=== PATIENT | male | born 1990 | race Caucasian/White ===

== ENCOUNTER 2019-03-09 15:20 | Inpatient (IN) ==
[2019-03-09] MEDS ORDERED: SODIUM CHLORIDE 0.9% 1000ML 2,000 ML IV ONE (15:33)
[2019-03-09 15:54] LABS: Mean Corpuscular Hgb Conc 34.8 g/dL (32-36)
[2019-03-09 15:57] LABS: Appearance Urine Clear (Clear); Bilirubin Urine Negative (Negative); Blood Urine Negative (Negative); Color Urine Yellow; Glucose Urine UA Negative (Negative); Ketones Urine Negative (Negative); Leukocyte Esterase Urine Negative (Negative); Nitrite Urine Negative (Negative); Protein Urine Negative (Negative); Specific Gravity Urine 1.008 (1.000-1.030); Urobilinogen Urine Negative (Negative)
[2019-03-09 16:06] LABS: Hematocrit (blood only) 41.4 % (42-52); Hemoglobin 14.4 g/dL (14.0-18.0); Mean Corpuscular Hemoglobin 30.6 pg (25-34); Mean Corpuscular Volume 87.9 fL (80-100); RDW Standard Deviation 42.1 fL (36.4-46.3); Red Blood Count 4.71 M/uL (4.7-6.1); White Blood Count 7.25 K/uL (4.8-10.8)
[2019-03-09 16:11] LABS: Albumin Level 4.1 gm/dl (3.4-5.0); BUN Creatinine Ratio 15.5 (10-20); Bilirubin Direct 0.1 mg/dl (0-0.2); Calcium 8.7 mg/dl (8.5-10.1); Creatinine Clr Calc Pharmacy 111.1 ml/min; Est GFR (African American) 106.1; Est GFR (Non-African American) 91.5; Potassium 3.3 mmol/L (3.5-5.1)
[2019-03-09 16:25] LABS: Basophils # (auto) 0.01 K/uL (0-0.2); Basophils % (auto) 0.1 %; Eosinophils # (auto) 0.13 K/uL (0-0.5); Eosinophils % (auto) 1.8 %; Immature Granulocytes # (auto) 0.01 K/uL (0.00-0.02); Immature Granulocytes % (auto) 0.1 %; Lymphocytes # (auto) 2.75 K/uL (1.2-3.4); Lymphocytes % (auto) 37.9 %; Mean Platelet Volume 13.2 fL (7.4-10.4); Monocytes # (auto) 0.42 K/uL (0.11-0.59); Monocytes % (auto) 5.8 %; Neutrophils # (auto) 3.93 K/uL (1.4-6.5); Neutrophils % (auto) 54.3 %; Platelet Count 136 K/uL (130-400); Platelet Estimate Normal (Normal)
[2019-03-09 16:26] LABS: Amphetamines+Metham, Urine Neg (Neg); Barbiturates, Urine Neg (Neg); Benzodiazepine, Urine Neg (Neg); Cocaine, Urine Neg (Neg); MDMA (Ecstacy), Urine Neg (Neg); Methadone, Urine Neg (Neg); Opiate, Urine Neg (Neg); Phencyclidine, Urine Neg (Neg)
[2019-03-09 17:02] LABS: Bilirubin,Total 0.4 mg/dl (0.2-1); Total Protein 7.3 gm/dl (6.4-8.2)
[2019-03-09] MEDS ORDERED: SODIUM CHLORIDE 0.9% 1000ML 1,000 ML IV SCH (17:15)
--- NOTE | 2019-03-09 17:25 | Emergency Department Note ---
Entered by Yumiko Ortez acting as a scribe for History of Present Illness General Chief complaint: Abnormal Labs/Diagnostic Testing Stated complaint: RHABDO-DIAGNOSED AT [facility] Time Seen by Provider: 03/09/19 15:30 History of Present Illness Provider complaint: abnormal labs Onset (ago): hour(s) 2 Pain Consistency: + other (episode) Maximum Pain Intensity: 4 Quality: + other (abnormal labs) Relieved By: + other (denies relief from drinking a lot of water) Associated symptoms: + denies other symptoms (hematuria, dysuria) and + other (abdominal pain that radiates to his back, diagnosed with rhabdomyolysis 3 days ago, does CrossFit and was doing a lot of crunches 3 days prior to getting diagnosed, CK was 1400 yesterday and 2300 today, urine is very dark regardless of how much water he drinks); no chest pain, no fever/chills, no nausea/vomiting and no shortness of breath The patient is a 28 year old male who presents to the ED with complaints of an episode of abnormal labs from 2 hours ago. The patient states that he has had severe abdominal pain that started 3 days ago and was diagnosed with rhabdomyolysis at [facility]. The patient states that his abdominal pain radiates to his back. The patient notes that he was at [employer] doing a lot of crunches 3 days prior to getting diagnosed with rhabdomyolysis. The patient states that his CK level was 1400 yesterday and 2300 today, so he was advised to come to the ED. The patient states that his urine is very dark, regardless of how much water he drinks. The patient denies fevers, nausea, vomiting, chest pain, shortness of breath, hematuria and dysuria. Home Medications Home Medications Medication Instructions Recorded Confirmed Type albuterol sulfate 2 puff INHALATION Q6H PRN 03/09/19 03/09/19 History cholecalciferol (vitamin D3) 0 unit PO DAILY 03/09/19 03/09/19 History [Vitamin D3] fluticasone propionate [Flovent 1 puff INHALATION BID PRN 03/09/19 03/09/19 History HFA] loratadine [Claritin] 10 mg PO DAILY 03/09/19 03/09/19 History multivitamin 1 tab PO QAM 03/09/19 03/09/19 History Allergies Allergy/AdvReac Type Severity Reaction Status Date / Time ENVIRONMENTAL Allergy Severe SWOLLEN Uncoded 03/09/19 16:12 EYES/STUFFY NOSE Past Med/Surg History Medical History No known health problems Rhabdomyolysis Social History Feels Safe at Home: Yes Smoking Status: Never smoker Review of Systems See HPI for pertinent positives & negatives. and A total of 10 systems reviewed and were otherwise negative Physical Exam Vital Signs Vital Signs - 24 hr 03/09/19 15:25 03/09/19 16:55 Temperature 36.6 C Temperature Source Oral Sepsis Recent Fever Within 48 Hours No Sepsis New/Unexplained Change in Mental Status No Sepsis Action Taken by Nursing No Action Required Pulse Rate 78 Pulse Rate [Apical] 68 Respiratory Rate 20 14 Respiratory Effort / Characteristics Non-Labored Spontaneous Respiratory Depth Normal Respiratory Pattern Regular Blood Pressure 136/75 Blood Pressure [Right Arm] 119/61 Blood Pressure Mean 95 Blood Pressure Mean [Right Arm] 80 Blood Pressure Position [Right Arm] Sitting Pulse Oximetry 97 100 Oxygen Delivery Method Room Air Room Air GENERAL: He is oriented to person, place, and time. He appears well-developed and well-nourished. He does not appear distressed. HENT: Exam performed. - Head: Normocephalic and atraumatic. - Right Ear: External ear normal. No mastoid tenderness. - Left Ear: External ear normal. No mastoid tenderness. - Mouth/Throat: The oropharynx is clear and moist. No trismus in the jaw. No dental abscesses or uvula swelling. No oropharyngeal exudate or tonsillar abscesses. EYES: Conjunctivae and EOM are normal. Pupils are equal, round, and reactive to light. Right eye exhibits no discharge. Left eye exhibits no discharge. No scleral icterus. NECK: Normal range of motion. Neck supple. No JVD present. No spinous process tenderness present. No carotid bruit present. No rigidity. No tracheal deviation and normal range of motion present. No Brudzinski's sign and no Kernig's sign noted. CV: Normal rate, regular rhythm, normal heart sounds and intact distal pulses. There is no peripheral edema. Palpable radial pulses bue. PULM/CHEST: Effort normal and breath sounds normal. No respiratory distress. No stridor. He has no wheezes. He has no rales. - Chest Wall: He exhibits no tenderness. ABD: The abdomen is soft. Bowel sounds are normal. He has no distension. No mass is present. There is no tenderness. There is no rebound, no guarding, no Mcduffie's sign and no tenderness at McBurney's point. Rovsig negative. MUSC/SKEL: Normal range of motion. There is no peripheral edema, tenderness or deformity. LYMPH: No cervical adenopathy. NEURO: He is alert and oriented to person, place, and time. He has normal strength. No cranial nerve deficit or sensory deficit. Coordination and gait normal. GCS eye subscore is 4. GCS verbal subscore is 5. GCS motor subscore is 6. Cerebellar tests wnl. SKIN: Skin is warm and dry. He is not diaphoretic. PSYCH: He has a normal mood and affect. Behavior is normal. Judgment and thought content normal. Course 1534: Past medical records reviewed. The patient was evaluated in room C03. A complete history and physical exam was performed. 1710: [place] [address]. Patient was started on 2 L normal saline fluid bolus and will continue with intravenous hydration during admission with Dr. Ortiz [facility] hospitalist. Consultations Consultation #1: I discussed the patient's case with Dr. Ortiz- [facility] Hospitalist. She will evaluate the patient for further management. Time: 17:04 Administered Medications Sodium Chloride (Nss 1000ml) 2,000 mls @ 999 mls/hr IV .Q2H1M ONE Stop: 03/09/19 17:33 Last Admin: 03/09/19 15:56 Dose: 999 mls/hr Documented by: [id number] Medical Decision Making Medical Records Attestation: I reviewed the patient's medical records. Home Medications Current Medication List: was personally reviewed by ok Laboratory Data Attestation: I reviewed the patient's lab results. Result diagrams: 03/09/19 15:45 03/09/19 15:45 Lab Results 03/09/19 03/09/19 03/09/19 Range/Units 15:45 15:45 15:45 WBC 7.25 (4.8-10.8) K/uL RBC 4.71 (4.7-6.1) M/uL Hgb 14.4 (14.0-18.0) g/dL Hct 41.4 L (42-52) % MCV 87.9 (80-100) fL MCH 30.6 (25-34) pg MCHC 34.8 (32-36) g/dL RDW Std Deviation 42.1 (36.4-46.3) fL RDW Coeff of [place] 13.0 (11.5-14.5) % Plt Count 136 (130-400) K/uL MPV 13.2 H (7.4-10.4) fL Immature Gran % (Auto) 0.1 % Neut % (Auto) 54.3 % Lymph % (Auto) 37.9 % [place] % (Auto) 5.8 % Eos % (Auto) 1.8 % Baso % (Auto) 0.1 % Immature Gran # (Auto) 0.01 (0.00-0.02) K/uL Neut # (Auto) 3.93 (1.4-6.5) K/uL Lymph # (Auto) 2.75 (1.2-3.4) K/uL [place] # (Auto) 0.42 (0.11-0.59) K/uL Eos # (Auto) 0.13 (0-0.5) K/uL Baso # (Auto) 0.01 (0-0.2) K/uL Platelet Estimate Normal (Normal) Sodium 139 (136-145) mmol/L Potassium 3.3 L (3.5-5.1) mmol/L Chloride 106 (98-107) mmol/L Carbon Dioxide 27 (21-32) mmol/L Anion Gap 6.0 (3-11) BUN 17 (7-18) mg/dl Creatinine 1.10 (0.6-1.4) mg/dl Est Cr Clr Drug Dosing 111.1 ml/min Est GFR ( Amer) 106.1 Est GFR (Non-Af Amer) 91.5 BUN/Creatinine Ratio 15.5 (10-20) Glucose 110 H (70-99) mg/dl Calcium 8.7 (8.5-10.1) mg/dl Total Bilirubin 0.4 (0.2-1) mg/dl Direct Bilirubin 0.1 (0-0.2) mg/dl AST 317 H (15-37) U/L ALT 103 H (12-78) U/L Alkaline Phosphatase 65 (45-117) U/L Total Creatine Kinase 22156 H (39-308) U/L Total Protein 7.3 (6.4-8.2) gm/dl Albumin 4.1 (3.4-5.0) gm/dl Lipase 100 (73-393) U/L Urine Color Urine Appearance (Clear) Urine pH (4.5-7.5) Ur Specific [place] (1.000-1.030) Urine Protein (Negative) Urine Glucose (UA) (Negative) Urine Ketones (Negative) Urine Blood (Negative) Urine Nitrite (Negative) Urine Bilirubin (Negative) Urine Urobilinogen (Negative) Ur Leukocyte Esterase (Negative) Urine Opiates Screen Neg (Neg) Ur Methadone, Qual Neg (Neg) Urine Barbiturates Neg (Neg) Ur Phencyclidine (PCP) Neg (Neg) U Amphetamin/Meth Scrn Neg (Neg) MDMA (Ecstasy) Screen Neg (Neg) U Benzodiazepines Scrn Neg (Neg) Ur Cocaine Metabolite Neg (Neg) U Marijuana (THC) Screen Neg (Neg) 03/09/19 Range/Units 15:45 WBC (4.8-10.8) K/uL RBC (4.7-6.1) M/uL Hgb (14.0-18.0) g/dL Hct (42-52) % MCV (80-100) fL MCH (25-34) pg MCHC (32-36) g/dL RDW Std Deviation (36.4-46.3) fL RDW Coeff of [place] (11.5-14.5) % Plt Count (130-400) K/uL MPV (7.4-10.4) fL Immature Gran % (Auto) % Neut % (Auto) % Lymph % (Auto) % [place] % (Auto) % Eos % (Auto) % Baso % (Auto) % Immature Gran # (Auto) (0.00-0.02) K/uL Neut # (Auto) (1.4-6.5) K/uL Lymph # (Auto) (1.2-3.4) K/uL [place] # (Auto) (0.11-0.59) K/uL Eos # (Auto) (0-0.5) K/uL Baso # (Auto) (0-0.2) K/uL Platelet Estimate (Normal) Sodium (136-145) mmol/L Potassium (3.5-5.1) mmol/L Chloride (98-107) mmol/L Carbon Dioxide (21-32) mmol/L Anion Gap (3-11) BUN (7-18) mg/dl Creatinine (0.6-1.4) mg/dl Est Cr Clr Drug Dosing ml/min Est GFR ( Amer) Est GFR (Non-Af Amer) BUN/Creatinine Ratio (10-20) Glucose (70-99) mg/dl Calcium (8.5-10.1) mg/dl Total Bilirubin (0.2-1) mg/dl Direct Bilirubin (0-0.2) mg/dl AST (15-37) U/L ALT (12-78) U/L Alkaline Phosphatase (45-117) U/L Total Creatine Kinase (39-308) U/L Total Protein (6.4-8.2) gm/dl Albumin (3.4-5.0) gm/dl Lipase (73-393) U/L Urine Color Yellow Urine Appearance Clear (Clear) Urine pH 6.0 (4.5-7.5) Ur Specific [place] 1.008 (1.000-1.030) Urine Protein Negative (Negative) Urine Glucose (UA) Negative (Negative) Urine Ketones Negative (Negative) Urine Blood Negative (Negative) Urine Nitrite Negative (Negative) Urine Bilirubin Negative (Negative) Urine Urobilinogen Negative (Negative) Ur Leukocyte Esterase Negative (Negative) Urine Opiates Screen (Neg) Ur Methadone, Qual (Neg) Urine Barbiturates (Neg) Ur Phencyclidine (PCP) (Neg) U Amphetamin/Meth Scrn (Neg) MDMA (Ecstasy) Screen (Neg) U Benzodiazepines Scrn (Neg) Ur Cocaine Metabolite (Neg) U Marijuana (THC) Screen (Neg) Blood Pressure Blood Pressure Findings: Normal blood pressure Blood Pressure Disposition: did not require urgent referral MDM Narrative [place] [address]. Patient was started on 2 L normal saline fluid bolus and will continue with intravenous hydration during admission with Dr. Ortiz [facility] hospitalist. Impression & Plan Rhabdomyolysis Discharge Plan Visit Data Chief Complaint: Abnormal Labs/Diagnostic Testing Stated Complaint: RHABDO-DIAGNOSED AT [facility] ED Provider: Alvin Herrera Discharge Problem: Rhabdomyolysis Patient Disposition: Being Evaluated by Hospitalist Forms Stand Alone Forms: My [facility] Prescriptions Prescriptions: No Action multivitamin Tablet 1 tab PO QAM RF: 0 Flovent HFA 44 mcg/actuation Hfa Aerosol Inhaler 1 puff INHALATION BID PRN (Reason: ASTHMA SYMPTOMS) RF: 0 albuterol sulfate 90 mcg/actuation Hfa Aerosol Inhaler 2 puff INHALATION Q6H PRN (Reason: BEFORE EXCERCISE/ SOB) RF: 0 loratadine [Claritin] 10 mg Tablet 10 mg PO DAILY RF: 0 cholecalciferol (vitamin D3) [Vitamin D3] 1,000 unit Capsule PO DAILY RF: 0 Referrals Referrals: [place] [Primary Care Provider] - Discharge Problem: Rhabdomyolysis Qualifiers: Rhabdomyolysis type: non-traumatic Qualified Code(s): M62.82 - Rhabdomyolysis The scribe's documentation has been prepared under my direction and personally reviewed by me in its entirety. I confirm that the note above accurately reflects all work, treatment, procedures, and medical decision making performed by me.
[2019-03-09] MEDS ORDERED: ALUMINUM/MAGNESIUM SUSP 30 ML UDC PO PRN (18:34)
[2019-03-09] MEDS ORDERED: MAGNESIUM HYDROXIDE SUSP 30 ML UDC PO PRN (18:34)
[2019-03-09] MEDS ORDERED: ACETAMINOPHEN 325 MG TAB PO PRN (18:34)
[2019-03-09] MEDS ORDERED: ALBUTEROL HFA 8 GM INHALER INH PRN (18:34)
[2019-03-09] MEDS ORDERED: FLUTICASONE PROP HFA INH 44 MCG INHALER INH PRN (18:34)
[2019-03-09] MEDS ORDERED: ONDANSETRON INJ 2 MG/ML 2 ML VIAL IV PRN (18:34)
[2019-03-09] MEDS ORDERED: POLYETHYLENE (MIRALAX) 17 GM PACK PO PRN (18:34)
[2019-03-09] MEDS: SODIUM CHLORIDE 0.9% 1000ML 1,000 ML IV SCH (18:50)
[2019-03-09] MEDS ORDERED: POTASSIUM CHLORIDE 20 MEQ TABCR PO ONE ×2 (19:00→21:00)
[2019-03-09] MEDS ORDERED: IBUPROFEN 200 MG TAB PO PRN (20:41)
[2019-03-09] MEDS ORDERED: TRAMADOL HCL 50 MG TABLET PO PRN (20:41)
--- NOTE | 2019-03-09 20:54 | History & Physical Report ---
Date of Service March 09, 2019 Assessment & Plan (1) Rhabdomyolysis: Admit to [facility] Vital signs every 4 hours Continue monitoring CK and trending down Continue call p.o.'s IV fluid hydration Replenish electrolytes Given potassium 40 mg p.o. x1 for hypokalemia DVT prophylaxis teds and SCDs, ambulate 3 times daily Full code Present on Admission?: Yes (2) Seasonal allergies: Continue home medicine albuterol sulfate 2 puffs every 6 hours as needed, Flonase 1 puff inhalation twice daily, loratadine 10 mg p.o. daily and multivitamin 1 tablet p.o. every morning Present on Admission?: Yes History of Present Illness Chief Complaint: Myalgia Primary Care Provider: [facility] Patient is a 28 years old male with past medical history of seasonal allergies who was sent to the emergency room by the staff at [facility] with diagnosis of rhabdomyolysis and elevated creatinine kinase. Initial creatinine kinase was 1400 yesterday, 2300 today at [facility], and [phone] when rechecked in [facility] ED. Patient did CrossFit couple of days ago doing and lots of crunches 3 days prior to getting diagnosed with rhabdomyolysis. Patient complained that his urine is very dark regardless of how much water he drinks. Patient denies fever, chills, chest pain, shortness of breath, frequency, urgency, dysuria and, hematuria, melena, hematochezia. Labs are reviewed which shows: WBC 7.25, hemoglobin 14.4, hematocrit 41.4, platelets 136, sodium 139, potassium 3.3, chloride 106, anion gap 27, BUN 17, creatinine 1.1, GFR 91.5, AST 317, ALT 103, creatinine kinase 92549. Urine is all negative. Color is yellow. Decision was made to admit patient to [facility] and continue IV fluid hydration and trending down creatinine kinase. Allergies Allergy/AdvReac Type Severity Reaction Status Date / Time ENVIRONMENTAL Allergy Severe SWOLLEN Uncoded 03/09/19 16:12 EYES/STUFFY NOSE Home Medications Home Medications Medication Instructions Recorded Confirmed Type albuterol sulfate 2 puff INHALATION Q6H PRN 03/09/19 03/09/19 History cholecalciferol (vitamin D3) 0 unit PO DAILY 03/09/19 03/09/19 History [Vitamin D3] fluticasone propionate [Flovent 1 puff INHALATION BID PRN 03/09/19 03/09/19 History HFA] loratadine [Claritin] 10 mg PO DAILY 03/09/19 03/09/19 History multivitamin 1 tab PO QAM 03/09/19 03/09/19 History Past Med/Surg History Medical History No known health problems Rhabdomyolysis Social History Preferred Language: Yoruba Communication Ability: Effective Neon Tube Pumper Required: No Beliefs That Will Affect Care: None Current Living Situation: Other Current Living Situation Comment: [facility] Other Information That Helps Us Care for You: No Feels Safe at Home: Yes Safety Concerns: Feels Safe At This Time Smoking Status: Never smoker Hx Alcohol Use: No Hx Substance Use: No Review of Systems Review of Systems: All systems reviewed & are unremarkable except as noted in HPI & below Physical Exam Constitutional: WD/WN, vitals as above well developed Eyes: PERRL, conjunctivae normal, anicteric sclerae ENMT: external ear and nose normal, oropharynx normal Neck: trachea midline, no thyromegaly Respiratory: normal respiratory effort, lungs clear to auscultation Cardiovascular: RRR, no murmur, no edema Gastrointestinal (Abdomen): normal bowel sounds, soft, nontender, no hepatosplenomegaly Musculoskeletal: no cyanosis or clubbing, extremities motor strength 5/5 Skin: no rashes, warm and dry Neurologic: patellar DTR's 2+ bilat, sensation intact Psychiatric: A+Ox3, euthymic affect Lymphatic: no cervical or axillary lymphadenopathy Results & Data Vital Signs (Past 12 Hours) Vital Signs Temp Pulse Pulse Pulse Resp BP BP 03/09/19 19:37 36.8 C 68 19 116/67 03/09/19 18:37 36.7 C 62 18 123/75 03/09/19 18:05 77 19 124/68 03/09/19 16:55 68 14 119/61 03/09/19 15:25 36.6 C 78 20 136/75 Pulse Ox 03/09/19 19:37 98 03/09/19 18:37 98 03/09/19 18:05 98 03/09/19 16:55 100 03/09/19 15:25 97 Code Status & VTE Plan Code Status Full code VTE Prophylaxis Plan VTE Prophylaxis will be ordered: Yes PG Care Time/CCT Total # of Minutes Spent Total Time Spent with Patient: Total time spent is greater than 50% in coordination of care (as documented) at patient's floor/unit and/or counseling patient: (1) Rhabdomyolysis Rhabdomyolysis type: non-traumatic Qualified Code(s): M62.82 - Rhabdomyolysis
[2019-03-09] MEDS: HEPARIN SOD 5,000 UNIT/0.5 ML VIAL SQ SCH (21:16)
[2019-03-10] MEDS: SODIUM CHLORIDE 0.9% 1000ML 1,000 ML IV SCH ×3 (00:35→13:13)
[2019-03-10] MEDS: HEPARIN SOD 5,000 UNIT/0.5 ML VIAL SQ SCH ×2 (05:34→13:16)
[2019-03-10 07:25] LABS: Albumin Level 3.5 gm/dl (3.4-5.0); BUN Creatinine Ratio 13.4 (10-20); Basophils # (auto) 0.02 K/uL (0-0.2); Basophils % (auto) 0.4 %; Calcium 8.2 mg/dl (8.5-10.1); Creatinine Clr Calc Pharmacy 140.2 ml/min; Eosinophils # (auto) 0.12 K/uL (0-0.5); Eosinophils % (auto) 2.1 %; Est GFR (African American) 136.4; Est GFR (Non-African American) 117.7; Hematocrit (blood only) 41.4 % (42-52); Hemoglobin 14.1 g/dL (14.0-18.0); Immature Granulocytes # (auto) 0.01 K/uL (0.00-0.02); Immature Granulocytes % (auto) 0.2 %; Lymphocytes # (auto) 1.64 K/uL (1.2-3.4); Lymphocytes % (auto) 28.7 %; Mean Corpuscular Hemoglobin 30.4 pg (25-34); Mean Corpuscular Hgb Conc 34.1 g/dL (32-36); Mean Corpuscular Volume 89.2 fL (80-100); Mean Platelet Volume 13.3 fL (7.4-10.4); Monocytes # (auto) 0.51 K/uL (0.11-0.59); Monocytes % (auto) 8.9 %; Neutrophils # (auto) 3.41 K/uL (1.4-6.5); Neutrophils % (auto) 59.7 %; Platelet Count 117 K/uL (130-400); Platelet Estimate Decreased (Normal); Potassium 4.1 mmol/L (3.5-5.1); RDW Coefficient of Variation 13.2 % (11.5-14.5); RDW Standard Deviation 43.3 fL (36.4-46.3); Red Blood Count 4.64 M/uL (4.7-6.1); White Blood Count 5.71 K/uL (4.8-10.8)
[2019-03-10 07:57] LABS: Albumin Globulin Ratio 1.2 (0.9-2); Bilirubin,Total 0.4 mg/dl (0.2-1); Total Protein 6.5 gm/dl (6.4-8.2)
[2019-03-10] MEDS ORDERED: ACETAMINOPHEN 325 MG TAB PO PRN (08:40)
[2019-03-10] MEDS ORDERED: MULTIVITAMIN TAB PO SCH (09:00)
[2019-03-10] MEDS ORDERED: CHOLECALCIFEROL 1,000 UNITS TAB PO SCH (09:00)
[2019-03-10] MEDS ORDERED: LORATADINE 10 MG TAB PO SCH (09:00)
--- NOTE | 2019-03-10 09:30 | Ultrasound Report ---
US liver CLINICAL HISTORY: transaminitis elevated liver function tests COMPARISON STUDY: No previous studies for comparison. FINDINGS: Normal liver and pancreas. Gallbladder is normal. No shadowing gallstones. Common bile duct 3 mm. Right kidney is negative for hydronephrosis. IMPRESSION: Negative study The above report was generated using voice recognition software. It may contain grammatical, syntax or spelling errors. Electronically signed by: Moy Coulter M.D. 03/10/2019 9:29 AM
[2019-03-10 10:36] LABS: Hepatitis B Surface Antigen Neg (Neg)
[2019-03-10 11:04] LABS: Hepatitis C IgG 13Yrs+Old_Rflx Neg (Neg)
[2019-03-10 12:27] LABS: BUN Creatinine Ratio 12.8 (10-20); Calcium 8.7 mg/dl (8.5-10.1); Creatinine Clr Calc Pharmacy 146.9 ml/min; Est GFR (African American) 139.1
[2019-03-10] MEDS ORDERED: SODIUM CHLORIDE 0.9% 1000ML 1,000 ML IV SCH (13:15)
--- NOTE | 2019-03-10 18:54 | Discharge Summary ---
Date of Service March 10, 2019 Admission HPI Per Admitting Provider Patient is a 28 years old male with past medical history of seasonal allergies who was sent to the emergency room by the staff at [facility] with diagnosis of rhabdomyolysis and elevated creatinine kinase. Initial creatinine kinase was 1400 yesterday, 2300 today at [facility], and [phone] when rechecked in [facility] ED. Patient did CrossFit couple of days ago doing and lots of crunches 3 days prior to getting diagnosed with rhabdomyolysis. Patient complained that his urine is very dark regardless of how much water he drinks. Patient denies fever, chills, chest pain, shortness of breath, frequency, urgency, dysuria and, hematuria, melena, hematochezia. Labs are reviewed which shows: WBC 7.25, hemoglobin 14.4, hematocrit 41.4, platelets 136, sodium 139, potassium 3.3, chloride 106, anion gap 27, BUN 17, creatinine 1.1, GFR 91.5, AST 317, ALT 103, creatinine kinase 34962. Urine is all negative. Color is yellow. Decision was made to admit patient to [facility] and continue IV fluid hydration and trending down creatinine kinase. Principal Diagnosis Rhabdomyolysis Discharge Exam Constitutional WD/WN, vitals as above Eyes PERRL, conjunctivae normal, anicteric sclerae ENMT external ear and nose normal, oropharynx normal Neck trachea midline, no thyromegaly Respiratory normal respiratory effort, lungs clear to auscultation Cardiovascular RRR, no murmur, no edema Gastrointestinal (Abdomen) normal bowel sounds, soft, nontender, no hepatosplenomegaly Musculoskeletal Extremities: extremities normal to inspection; no cyanosis and no clubbing no TTP over any large muscle groups except minimal abdominal tenderness Skin no rashes, warm and dry Neurologic moves all extremities and awake; no focal motor deficits Psychiatric A+Ox3, euthymic affect Discharge Data Allergies Allergy/AdvReac Type Severity Reaction Status Date / Time ENVIRONMENTAL Allergy Severe SWOLLEN Uncoded 03/09/19 16:12 EYES/STUFFY NOSE Consultations None Ordered Studies 03/10/19 04:52 US liver Routine Hospital Course (1) Rhabdomyolysis: Admitted after developing mild rhabdomyolysis after a Cross[employer] abdominal muscle workout several days prior to admission CPK 15k and then trended downward to 8k during admission after copious IVFs given Potassium replaced AST and ALT elevated secondary to rhabdo and trended downward Continue to follow CPK and LFTs as outpt with S in a few days Muscle discomfort in abdomen almost completely resolved by time of discharge, urine clear yellow, and much improved overall Renal function normal throughout -advised rest from Cross Fit and heavy exertion until cleared by PCP and then a gradual return to activity after that No previous rhabdo in patient or family members, making an inherited propensity not likely (2) Seasonal allergies: Continue home medicine albuterol sulfate 2 puffs every 6 hours as needed, Flonase 1 puff inhalation twice daily, loratadine 10 mg p.o. daily (3) Elevated transaminase level: as above, secondary to rhabdo Liver US ordered by admitting provider is normal (4) Asthma: stable no issues currently -continue meds as above for allergies (5) Chronic ITP (idiopathic thrombocytopenia): Sees Heme routinely, chronic, platelets mildly low at 112 on day of discharge which is above where patient reports he typically is Continue routine f/u with Heme Dispo-stable for dc to home Needs close PCP follow up at [facility] and repeat CMP, CPK within 2-3 days Total Time Total Time Spent Total Time Spent (In Minutes): >30 min Total Time Includes: Examination of the Patient, Discharge Planning and Medication Reconciliation Discharge Plan Discharge Items Patient Disposition: Home - Self-Care Reason For Visit: RHABDOMYOLYSIS Discharge Diagnosis: Rhabdomyolysis Condition on Discharge: Good Activity: As commented below Lifting: Gradually increase as tolerated Bathing: No limitations Exercise/Sports: Gradually increase as tolerated Driving/Machine Use: No limitations Non-emergency contact: Primary Care Provider Call non-emergency contact if: you have any medication questions, your symptoms worsen, your pain is not controlled, your pain is worsening, your pain is unusual for you and your pain is concerning for you Follow-up/Referrals: [place] [Primary Care Provider] - (Please call for an appointment within 1 week) Diet: Regular Addtl Attending Provider Instructions: Please continue to hydrate yourself with water. If you notice return of pain in the muscles that is worsening, dark urine, or any other acute concerns, please return to the emergency room. Otherwise, please follow-up with your primary care provider and have repeat blood work drawn to ensure that your creatine kinase continues to return towards normal. Pending Studies at Discharge: No Stand-Alone Forms: My [facility] Medications and DC Order Prescriptions: Continued multivitamin Tablet 1 tab PO QAM RF: 0 Flovent HFA 44 mcg/actuation Hfa Aerosol Inhaler 1 puff INHALATION BID PRN (Reason: ASTHMA SYMPTOMS) RF: 0 albuterol sulfate 90 mcg/actuation Hfa Aerosol Inhaler 2 puff INHALATION Q6H PRN (Reason: BEFORE EXCERCISE/ SOB) RF: 0 loratadine [Claritin] 10 mg Tablet 10 mg PO DAILY RF: 0 cholecalciferol (vitamin D3) [Vitamin D3] 1,000 unit Capsule PO DAILY RF: 0 Discharge Orders: Discharge Order (Routine); Ordered 03/10/19 Ordered By: Odette Aguila Admission Data Admit Date/Time: 03/09/19 17:21 Attending Provider: Odette Aguila Admit Provider: Prakash Ortiz Primary Care Provider: [place] Other Providers: Prakash Ortiz Other Interventions: Discharge Summary Assessment (RN) Last Done: 03/10/19 19:00 DC Date/Time DO NOT enter until pt leaves facility: 03/10/19 19:16
[2019-03-10 19:02] VITALS: BP 150/78; PULSE 75; TEMP 98.1; O2SAT 99
[2019-03-12 02:46] LABS: Hepatitis A Antibody IgM NON-REACTIVE (NON-REACTIVE); Hepatitis B Core Antibody IgM NON-REACTIVE (NON-REACTIVE)
== END 2019-03-10 19:16 | disposition home or self-care (01) | DRG 558 ==
LOC: ED 15:20 → SUATTDRO 17:21 → 2N 17:21